=== PATIENT | male | born 1970 ===

== ENCOUNTER 2023-11-16 05:20 | Day surgery (SDC) | payer OTHER ==
[2023-11-10 15:12] LABS: INR 1.07; PARTIAL THROMBOPLASTIN TIME 28.9 SECONDS (22.0-34.0); PROTHROMBIN TIME 11.2 SECONDS (9.0-11.5)
[~2023-11-16] VITALS: Ht 182.9 cm; Wt 86.2 kg
[~2023-11-16 05:20] MED LIST: AVAPRO150 MG PO; CRESTOR40 MG PO
[2023-11-16] MEDS ORDERED: HEMOSTATIC MATRIX 1 KIT KIT TOP ONE (08:00)
[2023-11-16] MEDS ORDERED: BUPIVACAINE HCL/PF 0.25% 50 ML VIAL IJ ONE (08:00)
[2023-11-16] MEDS ORDERED: METRONIDAZOLE/SODIUM CHLORIDE 500 MG/100 ML PIGGYBACK IV ONE (08:00)
[2023-11-16] MEDS ORDERED: BUPIVACAINE LIPOSOME/PF 266 MG/20 ML VIAL IJ ONE (08:00)
[2023-11-16] MEDS ORDERED: CEFTRIAXONE SODIUM 2,000 MG VIAL IV ONE (08:00)
[2023-11-16] MEDS ORDERED: POVIDONE-IODINE 118 ML BOTT TOP ONE (08:00)
[2023-11-16] MEDS ORDERED: DIBUCAINE 30 GM TUBE RECTAL ONE (08:00)
[2023-11-16] MEDS ORDERED: OXYC1TAB9 PO (08:26)
[2023-11-16] MEDS ORDERED: TAMSULOSIN HCL 0.4 MG CAP PO ONE (08:30)
== END 2023-11-16 13:25 | disposition home or self-care (01) ==
LOC: CIR.AMB 05:20
PROVIDERS: ATTEND Surgery
DX: K64.2 Third degree hemorrhoids (principal); K64.4 Residual hemorrhoidal skin tags; K62.5 Hemorrhage of anus and rectum; K62.89 Other specified diseases of anus and rectum; I10 Essential (primary) hypertension